=== PATIENT | female | born 1995 | race Caucasian/White ===

== ENCOUNTER 2016-07-04 08:44 | Emergency (ER) | payer OTHER ==
--- NOTE | 2016-07-04 10:26 | UC ---
UC General HPI - HPI Summary HPI Summary: complaint of rash started approx 2 months ago wetrn to PCP and recieved treatment for ringworm- using antifungal cream rash started on her both legs then spread to arms ,right breast abd stomach rash is not itchy, dry denies fever and URI symptoms denies any new soaps detergents foods, medication - History of Current Complaint Chief Complaint: UCRash Stated Complaint: RASH Time Seen by Provider: 07/04/16 10:18 Hx Obtained From: Patient - Allergy/Home Medications Allergies/Adverse Reactions: Allergies Allergy/AdvReac Type Severity Reaction Status Date / Time No Known Allergies Allergy Verified 05/06/15 15:37 PMH/Surg Hx/FS Hx/Imm Hx Previously Healthy: Yes - Surgical History Surgical History: Yes Surgery Procedure, Year, and Place: Jaw Surgery 2013 in [place], t+a - Family History Known Family History: Positive: Hypertension, Diabetes Negative: Cardiac Disease - Social History Occupation: Student Lives: With Family Alcohol Use: None Substance Use Type: None Smoking Status (MU): Never Smoked Tobacco Review of Systems Constitutional: Negative Skin: Rash Eyes: Negative ENT: Negative Respiratory: Negative Cardiovascular: Negative Gastrointestinal: Negative Genitourinary: Negative Motor: Negative Neurovascular: Negative Musculoskeletal: Negative Neurological: Negative Psychological: Negative All Other Systems Reviewed And Are Negative: Yes Physical Exam Triage Information Reviewed: Yes Appearance: No Pain Distress, Well-Nourished, Obese Vital Signs: Initial Vital Signs Temp 98.2 F 07/04/16 09:21 Pulse 91 07/04/16 09:21 Resp 16 07/04/16 09:21 BP 133/78 07/04/16 09:21 Pulse Ox 100 07/04/16 09:21 Vital Signs Reviewed: Yes Eyes: Positive: Conjunctiva Clear ENT: Positive: Pharynx normal, Nasal drainage Neck: Positive: No Lymphadenopathy Respiratory: Positive: Lungs clear, Normal breath sounds, No respiratory distress Cardiovascular: Positive: RRR, No Murmur, Pulses Normal Abdomen Description: Positive: Nontender, Soft Bowel Sounds: Positive: Present Musculoskeletal Exam: Normal Neurological Exam: Normal Psychological Exam: Normal Skin: Positive: Other - areas or erythematous circular patches with raised edge and clear centers- 2 left, 1 right breast, 2 on torso Course/Dx - Differential Dx - Multi-Symptom Differential Diagnoses: Other - tinea, impetigo Provider Diagnoses: tinea corporis Discharge - Discharge Plan Condition: Stable Disposition: HOME Prescriptions: Clotrimazole W/ Betamethasone [Clotrimazole/Betamethason 1-0.05 %] 1 lot EX BID #1 tube Patient Education Materials: Tinea Corporis (ED) Referrals: No Primary Care Phys,NOPCP [Primary Care Provider] - [facility] [Outside] Additional Instructions: Please cream as directed Increase fluids and rest Take acetaminophen or ibuprofen for fever or pain Please review your discharge instructions. If your symptoms do not improve please call your primary care provider or return to urgent Your blood pressure is pre-hypertensive reading. Please contact your primary care provider within 1 day -4 weeks for further evaluation.
[2016-07-04 10:54] VITALS: BP 128/70
== END 2016-07-04 10:53 | disposition home or self-care (01) ==
LOC: UCEAST 08:44
DX: B35.4 Tinea corporis (principal); E66.9 Obesity, unspecified
CPT/HCPCS: 99212; G0463

== ENCOUNTER 2016-11-12 08:54 | Emergency (ER) | payer OTHER ==
[2016-11-12 09:01] VITALS: BP 143/73
--- NOTE | 2016-11-12 09:08 | UC ---
Skin Complaint HPI - HPI Summary HPI Summary: 21 JYACE OLD FEMALE PRESENTS WITH COMPLAINS OF LEFT ANTERIOR VALDEZ FUNGAL INFECTION PRESENTS FOR A REFILL ON HER LOTRISONE. - History of Current Complaint Chief Complaint: UCMedRefill Time Seen by Provider: 11/12/16 09:06 Stated Complaint: MEDICATION REFILL FOR A FUNGAL INFECTION Hx Obtained From: Patient Hx Last Menstrual Period: 11/11/16 Onset/Duration: Sudden Onset Skin Exposure Onset/Duration: Days Ago Onset Severity: Moderate Current Severity: Moderate Pain Scale Used: 0-10 Numeric - 6 - Allergy/Home Medications Allergies/Adverse Reactions: Allergies Allergy/AdvReac Type Severity Reaction Status Date / Time No Known Allergies Allergy Verified 05/06/15 15:37 Review of Systems Constitutional: Negative Skin: Rash - LEFT ANTERIOR VALDEZ Eyes: Negative ENT: Negative Respiratory: Negative Cardiovascular: Negative Gastrointestinal: Negative Genitourinary: Negative Motor: Negative Neurovascular: Negative Musculoskeletal: Negative Neurological: Negative Psychological: Negative All Other Systems Reviewed And Are Negative: Yes PMH/Surg Hx/FS Hx/Imm Hx Previously Healthy: Yes - Surgical History Surgical History: Yes Surgery Procedure, Year, and Place: Jaw Surgery 2013 in [place], t+a - Family History Known Family History: Positive: Hypertension, Diabetes Negative: Cardiac Disease - Social History Alcohol Use: None Substance Use Type: None Smoking Status (MU): Never Smoked Tobacco Physical Exam Triage Information Reviewed: Yes Vital Signs: Initial Vital Signs Temp 37.0 C 11/12/16 08:58 Pulse 88 11/12/16 08:58 Resp 18 11/12/16 08:58 BP 143/73 11/12/16 08:58 Pulse Ox 99 11/12/16 08:58 Eye Exam: Normal ENT Exam: Normal Dental Exam: Normal Neck exam: Normal Neck: Positive: 1 Respiratory Exam: Normal Cardiovascular Exam: Normal Abdominal Exam: Normal Musculoskeletal Exam: Normal Neurological Exam: Normal Psychological Exam: Normal Skin: Positive: rashes - LEFT ANTERIOR VALDEZ Course/Dx - Diagnoses Provider Diagnoses: FUNGAL INFECTION LEFT ANTERIOR VALDEZ Discharge - Discharge Plan Condition: Stable Disposition: HOME Prescriptions: Betamethasone Shira 0.1% CRM(NF) [Valisone 0.1% CM(NF)] 1 applic TOPICAL BID #90 gm Clotrimazole 1% CREAM* [Clotrimazole 1%*] 1 applic TOPICAL BID #90 gm Patient Education Materials: Skin Yeast Infection (ED) Referrals: Lissett Castro [Medical Doctor] - No Primary Care Phys,NOPCP [Primary Care Provider] -
== END 2016-11-12 09:26 | disposition home or self-care (01) ==
LOC: UCEAST 08:54
DX: B36.8 Other specified superficial mycoses (principal)
CPT/HCPCS: 99212; G0463

== ENCOUNTER 2017-02-05 12:55 | Emergency (ER) | payer OTHER ==
[2017-02-05 13:15] VITALS: BP 120/72
--- NOTE | 2017-02-05 15:00 | UC ---
Skin Complaint HPI - HPI Summary HPI Summary: This is an otherwise healthy 21 yo female who presents with c/o rash. This is the 3rd time this year she has been seen with this complaint. She was diagnosed with tinea in June and prescribed clotriamzole/betamethasone cream which was effective. She was seen again in October with a recurrence and given a refill. She said she has continued to use the cream twice daily for the last 3 months and the rash was nearly gone until last week when it flared again. She denies associated pruritis or flaking of the skin. - History of Current Complaint Chief Complaint: UCSkin Stated Complaint: INFECTED LEGS Hx Last Menstrual Period: 02/01/17 - Allergy/Home Medications Allergies/Adverse Reactions: Allergies Allergy/AdvReac Type Severity Reaction Status Date / Time No Known Allergies Allergy Verified 02/05/17 13:15 Review of Systems Constitutional: Negative Skin: Rash Eyes: Negative ENT: Negative Respiratory: Negative Cardiovascular: Negative Gastrointestinal: Negative Genitourinary: Negative Motor: Negative Neurovascular: Negative Musculoskeletal: Negative Neurological: Negative Psychological: Negative Is Patient Immunocompromised?: No All Other Systems Reviewed And Are Negative: Yes PMH/Surg Hx/FS Hx/Imm Hx Previously Healthy: Yes - Surgical History Surgical History: Yes Surgery Procedure, Year, and Place: Jaw Surgery 2013 in [place], t+a - Family History Known Family History: Positive: Hypertension, Diabetes Negative: Cardiac Disease - Social History Alcohol Use: None Substance Use Type: None Smoking Status (MU): Never Smoked Tobacco Physical Exam Triage Information Reviewed: Yes Appearance: Well-Appearing Vital Signs: Initial Vital Signs Temp 98.2 F 02/05/17 13:09 Pulse 68 02/05/17 13:09 Resp 20 02/05/17 13:09 BP 120/72 02/05/17 13:09 Pulse Ox 100 02/05/17 13:09 Vital Signs Reviewed: Yes ENT Exam: Normal Dental Exam: Normal Neck exam: Normal Respiratory: Positive: Chest non-tender, Lungs clear Cardiovascular Exam: Normal Cardiovascular: Positive: RRR, No Murmur Abdominal Exam: Normal Abdomen Description: Positive: Nontender Musculoskeletal Exam: Normal Musculoskeletal: Positive: Strength Intact Neurological Exam: Normal Psychological Exam: Normal Skin: Positive: Other - patches of erythematous/hyperpigmented papules over her legs and lower abdomen. None raised, no flaking or excoriation Course/Dx - Course Course Of Treatment: This is an otherwise healthy 21 yo female who presents with recurrent skin rash. Recommend trialing ketoconazole shampoo applied to the entire body for suspected tinea versicolor. Recommend she be seen by a tire beader maker. Her mother is going to work on setting her up for an appointment. - Differential Diagnoses - Skin Complaint Differential Diagnoses: Cellulitis, Drug Rash, Impetigo, Tinea - Diagnoses Provider Diagnoses: 1. Tinea versicolor Discharge - Discharge Plan Condition: Stable Disposition: HOME Prescriptions: Ketoconazole (Topical) [Ketoconazole] 2 % EX DAILY #1 bottle Patient Education Materials: Tinea Versicolor (ED) Referrals: No Primary Care Phys,NOPCP [Primary Care Provider] - Additional Instructions: Instructions: 1. Apply the shampoo to your entire body, wait 5 minutes before rinsing. Do this once daily for 7 days 2. Please see a tire beader maker when you finish classes this semester
== END 2017-02-05 14:57 | disposition home or self-care (01) ==
LOC: UCEAST 12:55
DX: B36.0 Pityriasis versicolor (principal)
CPT/HCPCS: 99212; G0463

== ENCOUNTER 2017-08-12 09:30 | Emergency (ER) | payer OTHER ==
[2017-08-12 09:42] VITALS: BP 129/85
--- NOTE | 2017-08-12 10:22 | UC ---
Elaina Stein Emily, scribed for Sigifredo Nicole MD on 08/12/17 at 1005 . Complaint Female HPI - HPI Summary HPI Summary: In room: This patient is a 21 year old F presenting to convenient care with a chief complaint of internal vaginal itching that began yesterday. The patient rates the pain 0/10 in severity. Symptoms aggravated by nothing. Symptoms alleviated by nothing. Patient reports vaginal discharge (white). Patient denies abd pain, nausea, vomiting, and diarrhea. Pt reports having a vaginal yeast infection 1 year ago. MD: Vital signs stable. Temperature 99.4. Blood pressure 129/85. Visit history noncontributory to present complaint. Nurses: Pt complains of vaginal itching that began 08/11/17. Pt states itching has gotten worse. - History Of Current Complaint Chief Complaint: UCGU Stated Complaint: PERSONAL Time Seen by Provider: 08/12/17 09:45 Hx Obtained From: Patient Hx Last Menstrual Period: 07/16/17 ?: No Onset/Duration: Sudden Onset, Lasting Days, Still Present Timing: Constant Severity Initially: Mild Severity Currently: Mild Pain Intensity: 0 Pain Scale Used: 0-10 Numeric Aggravating Factor(s): Nothing Alleviating Factor(s): Nothing Associated Signs And Symptoms: Positive: Vaginal Discharge - Allergies/Home Medications Allergies/Adverse Reactions: Allergies Allergy/AdvReac Type Severity Reaction Status Date / Time No Known Allergies Allergy Verified 08/12/17 09:38 PMH/Surg Hx/FS Hx/Imm Hx Previously Healthy: Yes Endocrine History: Other Other Endocrine History: Negative diabetes Cardiovascular History: Other Other Cardiovascular History: Negative HTN - Surgical History Surgical History: Yes Surgery Procedure, Year, and Place: Jaw Surgery 2013 in [place], t+a - Family History Known Family History: Positive: Hypertension, Diabetes, Other - [place] Negative: Cardiac Disease - Social History Occupation: Student Lives: With Family Alcohol Use: None Substance Use Type: None Smoking Status (MU): Never Smoked Tobacco Review of Systems Gastrointestinal: Other - Negative abd pain, nausea, vomiting, and diarrhea Genitourinary: Vaginal/Penile Itching, Vaginal/Penile Discharge All Other Systems Reviewed And Are Negative: Yes Physical Exam - Summary Physical Exam Summary: Appearance: The patient is well-appearing, is in no pain distress, and is well- nourished. Eyes: Conjunctiva are clear. ENT: The hearing is grossly normal, the pharynx is normal, and the TMs are normal. There is no muffled or hoarse voice. Neck: The neck is supple and there is no lymphadenopathy. Respiratory: The chest is nontender. The lungs are clear, there are normal breath sounds, and there is no respiratory distress. Cardiovascular: Heart is regular rate and rhythm. There is no murmur. Abdomen: The abdomen is soft and nontender. There is no organomegaly. Pelvic Exam: FEMALE RN PRESENT. EGB WAS NORMAL. VAGINAL VAULT HAS A MODERATE AMOUNT OF WHITE, CURD-LIKE SUBSTANCE. NO OBVIOUS ODOR. YEAST TRICHOMONAS AND GC WERE TESTED. BIMANUAL EXAMINATION SHOWS THE SLIGHTEST TENDERNESS WITHOUT MASSES. Bowel sounds: present Musculoskeletal: Strength is intact. The patient moves all extremities. Neurological: The patient is alert. Psychological: The patient displays age appropriate behavior Skin: Negative for rashes. Triage Information Reviewed: Yes Vital Signs: Initial Vital Signs Temp 99.4 F 08/12/17 09:39 Pulse 67 08/12/17 09:39 Resp 16 08/12/17 09:39 BP 129/85 08/12/17 09:39 Pulse Ox 100 08/12/17 09:39 Vital Signs Reviewed: Yes Complaint Female Dx - Course Course Of Treatment: Pt with a history of vaginal yeast infections. Comes to the [facility] with similar complaints. She is sexually active. Examination is consistent with vulvovaginal candidiasis. As the explanation of pruritus. We will also follow up to test for trich NGC. I will treat her with oral fluconazole 150 milligrams, to have the dose repeated in 3 days if no resolution. Patient is Urgent/Emergent. BP elevated due to current condition w/ o HTN in past medical history. Medications have been included in the original chart and reviewed. - Differential Dx/Diagnosis Provider Diagnoses: Vulvovaginal candidiasis. Discharge - Sign-Out/Discharge Documenting (check all that apply): Discharge/Admit/Transfer - Discharge Plan Condition: Stable Disposition: HOME Prescriptions: Fluconazole [Fluconazole 150 mg tab] 150 mg PO ONCE #2 tablet Patient Education Materials: Yeast Infection (ED) Referrals: No Primary Care Phys,NOPCP [Primary Care Provider] - Additional Instructions: SEEK TREATMENT AT THE EMERGENCY DEPARTMENT IF SYMPTOMS WORSEN OR IF NEW SYMPTOMS DEVELOP. FOLLOW UP WITH PRIMARY CARE PHYSICIAN. Establish with a new primary care provider and follow-up within 4 weeks for blood pressure readings and further evaluation. ~If you cant find a provider, try to check your blood pressure on your own and see if its above 120/80. If so , follow up for further evaluation and treatment. WE DISCUSSED: 1. I have given you a pill to deal with this condition. You can repeat this pill in 3 days if you are not better. You could also buy over the counter medication to treat this condition. 2. If you have any other abnormal texts, we will call you, as needed. 3. Call us for any questions or concerns. - Billing Disposition and Condition Condition: STABLE Disposition: HOME The documentation as recorded by the Elaina wilson Emily accurately reflects the service I personally performed and the decisions made by me, Sigifredo Nicole MD.
--- NOTE | 2017-08-13 16:38 | UC ---
- Progress Note Progress Note: PLEASE CALL PATIENT. VAGINAL SWAB POSITIVE NOT ONLY FOR YEAST BUT ALSO FOR BV. TAKE THE DIFLUCAN ORIGINALLY PRESCRIBED. ERX FOR FLAGYL SENT TO [facility]. TAKE TWICE DAILY FOR THE FULL 7 DAYS. NO ALCOHOL WHILE ON THIS MEDICATION. FOLLOW-UP PCP NEEDED. - LYLE AKINS M.D. Discharge - Sign-Out/Discharge Documenting (check all that apply): Post-Discharge Follow Up - Discharge Plan Condition: Stable Disposition: HOME Prescriptions: Fluconazole [Fluconazole 150 mg tab] 150 mg PO ONCE #2 tablet metroNIDAZOLE [Flagyl 500 MG TAB] 500 mg PO BID #14 tab Patient Education Materials: Yeast Infection (ED) Referrals: No Primary Care Phys,NOPCP [Primary Care Provider] - Additional Instructions: SEEK TREATMENT AT THE EMERGENCY DEPARTMENT IF SYMPTOMS WORSEN OR IF NEW SYMPTOMS DEVELOP. FOLLOW UP WITH PRIMARY CARE PHYSICIAN. Establish with a new primary care provider and follow-up within 4 weeks for blood pressure readings and further evaluation. ~If you cant find a provider, try to check your blood pressure on your own and see if its above 120/80. If so , follow up for further evaluation and treatment. WE DISCUSSED: 1. I have given you a pill to deal with this condition. You can repeat this pill in 3 days if you are not better. You could also buy over the counter medication to treat this condition. 2. If you have any other abnormal texts, we will call you, as needed. 3. Call us for any questions or concerns. - Billing Disposition and Condition Condition: STABLE Disposition: HOME
== END 2017-08-12 10:30 | disposition home or self-care (01) ==
LOC: UCEAST 09:30
DX: B37.3 Candidiasis of vulva and vagina (principal); R03.0 Elevated blood-pressure reading, without diagnosis of hypertension; N76.0 Acute vaginitis; B96.89 Other specified bacterial agents as the cause of diseases classified elsewhere
CPT/HCPCS: 87480; 87491; 87510; 87591; 87661; 99212; G0463

== ENCOUNTER 2017-08-26 10:33 | Emergency (ER) | payer OTHER ==
[2017-08-26 10:39] VITALS: BP 137/74
--- NOTE | 2017-08-26 11:10 | UC ---
Complaint Female HPI - HPI Summary HPI Summary: Patiently recent treatment treated for BV and vaginal yeast. Patient states she has been external itching. No vaginal discharge, no urinary symptoms, no fevers, chills, nausea, no night sweats, no pelvic pain - History Of Current Complaint Chief Complaint: UCGU Stated Complaint: PERSONAL Time Seen by Provider: 08/26/17 10:44 Hx Obtained From: Patient Hx Last Menstrual Period: 08/11/17 ?: No Onset/Duration: Gradual Onset, Still Present Timing: Constant Pain Intensity: 0 Character: Burning Aggravating Factor(s): Other - external vulva/vaginal Alleviating Factor(s): Nothing Associated Signs And Symptoms: Positive: Negative - Allergies/Home Medications Allergies/Adverse Reactions: Allergies Allergy/AdvReac Type Severity Reaction Status Date / Time No Known Allergies Allergy Verified 08/26/17 10:40 PMH/Surg Hx/FS Hx/Imm Hx Previously Healthy: Yes - Surgical History Surgical History: Yes Surgery Procedure, Year, and Place: Jaw Surgery 2013 in [place], t+a - Family History Known Family History: Positive: Hypertension, Diabetes, Other - [place] Negative: Cardiac Disease - Social History Occupation: Employed Full-time Lives: With Family Alcohol Use: None Substance Use Type: None Smoking Status (MU): Never Smoked Tobacco Review of Systems Constitutional: Negative Skin: Negative Eyes: Negative ENT: Negative Respiratory: Negative Cardiovascular: Negative Gastrointestinal: Negative Genitourinary: Negative, Other - vulva itching Motor: Negative Neurovascular: Negative Musculoskeletal: Negative Neurological: Negative Psychological: Negative Is Patient Immunocompromised?: No All Other Systems Reviewed And Are Negative: Yes Physical Exam Triage Information Reviewed: Yes Appearance: Well-Appearing, No Pain Distress, Well-Nourished Vital Signs: Initial Vital Signs Temp 96.6 F 08/26/17 10:36 Pulse 84 08/26/17 10:36 Resp 16 08/26/17 10:36 BP 137/74 08/26/17 10:36 Pulse Ox 100 08/26/17 10:36 Vital Signs Reviewed: Yes Eye Exam: Normal Eyes: Positive: Conjunctiva Clear ENT Exam: Normal ENT: Positive: Normal ENT inspection, Hearing grossly normal. Negative: Nasal congestion, Nasal drainage - Sure alcohol right now, Trismus, Muffled voice, Hoarse voice, Dental tenderness Dental Exam: Normal Neck exam: Normal Neck: Positive: Supple, Nontender, No Lymphadenopathy Respiratory Exam: Normal Respiratory: Positive: Chest non-tender, Lungs clear, Normal breath sounds, No respiratory distress, No accessory muscle use Cardiovascular Exam: Normal Cardiovascular: Positive: RRR, No Murmur, Pulses Normal, Brisk Capillary Refill Abdominal Exam: Normal Abdomen Description: Positive: Nontender, No Organomegaly, Soft. Negative: CVA Tenderness (R), CVA Tenderness (L), McBurney's Point Tenderness Bowel Sounds: Positive: Present Pelvic Exam: Positive: External Exam Normal, Discharge - small amount brown ( old blood) discharge Musculoskeletal Exam: Normal Musculoskeletal: Positive: Strength Intact, ROM Intact, No Edema Neurological Exam: Normal Neurological: Positive: Alert, Muscle Tone Normal - Pressure Psychological Exam: Normal Skin Exam: Normal Complaint Female Dx - Course Course Of Treatment: affirm and apptima swab, use monistat externall for itching ---will treat per lab results - Differential Dx/Diagnosis Provider Diagnoses: follow up vaginitis Discharge - Sign-Out/Discharge Documenting (check all that apply): Discharge/Admit/Transfer - Discharge Plan Condition: Stable Disposition: HOME Patient Education Materials: Yeast Infection (ED) Referrals: [facility] [Outside] - If Needed Additional Instructions: Lore, who did agree to brain picker some Monistat cream at the pharmacy. You can use this externally for some of the itching. If you are swabs come back positive for anything we will give you call and call in the appropriate antibiotic. If symptoms get any worse or fail to improve please go to the emergency department for worsening symptoms, to [facility] for follow- up care if symptoms don't improve - Billing Disposition and Condition Condition: STABLE Disposition: Home
--- NOTE | 2017-08-28 07:57 | UC ---
- Progress Note Progress Note: neg GC/CH Trich neg no change 08/28/17 7:56am ljj Discharge - Sign-Out/Discharge Documenting (check all that apply): Post-Discharge Follow Up - Discharge Plan Condition: Stable Disposition: HOME Patient Education Materials: Yeast Infection (ED) Referrals: [facility] [Outside] - If Needed Additional Instructions: Lore, who did agree to pickling tank operator some Monistat cream at the pharmacy. You can use this externally for some of the itching. If you are swabs come back positive for anything we will give you call and call in the appropriate antibiotic. If symptoms get any worse or fail to improve please go to the emergency department for worsening symptoms, to [facility] for follow- up care if symptoms don't improve - Billing Disposition and Condition Condition: STABLE Disposition: Home
== END 2017-08-26 11:15 | disposition home or self-care (01) ==
LOC: UCEAST 10:33
DX: Z51.89 Encounter for other specified aftercare (principal); N89.8 Other specified noninflammatory disorders of vagina
CPT/HCPCS: 81003; 84702; 87086; 87480; 87491; 87510; 87591; 87661; 99212; G0463

== ENCOUNTER 2018-03-10 15:55 | Emergency (ER) | payer OTHER ==
[2018-03-10 16:05] VITALS: BP 138/71
--- NOTE | 2018-03-10 16:11 | UC ---
Abdominal Pain Female HPI - HPI Summary HPI Summary: 22 y/o female with no PMH, no medication other than OCP c/o burning, urgency, mild discomfort with urination, no vaginal discharge, no pain with sex, no odor , hematuria, back pain, fever or chills, no prior UTI. - History of Current Complaint Chief Complaint: UCGU Stated Complaint: PERSONAL Time Seen by Provider: 03/10/18 16:00 Hx Obtained From: Patient Hx Last Menstrual Period: 02/08/18 ?: No Onset/Duration: Sudden Onset, Lasting Days, Worse Since - past 24 hours mild symptoms over weekend Severity Initially: Mild Severity Currently: None Pain Intensity: 0 Pain Scale Used: 0-10 Numeric Location: Suprapubic - mild Allergies/Adverse Reactions: Allergies Allergy/AdvReac Type Severity Reaction Status Date / Time No Known Allergies Allergy Verified 03/10/18 16:04 PMH/Surg Hx/FS Hx/Imm Hx Previously Healthy: Yes - Surgical History Surgical History: Yes Surgery Procedure, Year, and Place: Jaw Surgery 2013 in [facility]a - Family History Known Family History: Positive: Hypertension, Diabetes, Other - [place] Negative: Cardiac Disease - Social History Alcohol Use: Rare Substance Use Type: None Smoking Status (MU): Never Smoked Tobacco Review of Systems All Other Systems Reviewed And Are Negative: Yes Constitutional: Negative: Fever, Chills Skin: Positive: Negative Eyes: Positive: Negative ENT: Positive: Negative Respiratory: Positive: Negative Cardiovascular: Positive: Negative Gastrointestinal: Positive: Negative Genitourinary: Positive: Dysuria, Frequency, Urgency. Negative: Hematuria, Vaginal/Penile Burning, Vaginal/Penile Itching, Vaginal/Penile Discharge, Vaginal/Penile Pain, Vaginal/Penile Tenderness Motor: Positive: Negative Neurovascular: Positive: Negative Musculoskeletal: Positive: Negative Neurological: Positive: Negative Psychological: Positive: Negative Is Patient Immunocompromised?: No Physical Exam Triage Information Reviewed: Yes Appearance: Well-Appearing, No Pain Distress, Well-Nourished Vital Signs: Initial Vital Signs Temp 98.9 F 03/10/18 16:01 Pulse 76 03/10/18 16:01 Resp 14 03/10/18 16:01 BP 138/71 03/10/18 16:01 Pulse Ox 98 03/10/18 16:01 Vital Signs Reviewed: Yes Eyes: Positive: Conjunctiva Clear Abdominal Exam: Normal Abdomen Description: Positive: Nontender, No Organomegaly, Soft, Bruit. Negative: CVA Tenderness (R), CVA Tenderness (L) Musculoskeletal Exam: Normal Neurological Exam: Normal Psychological Exam: Normal Skin Exam: Normal Abd Pain Female Course/Dx - Course Course Of Treatment: UA- + leuks, sent for Cx's. ABx x 3 days given incrase fluid intake - Differential Dx/Diagnosis Differential Diagnosis: Irritable Bowel Syndrome, Pancreatitis, Renal Colic, Urinary Tract Infection Provider Diagnosis: UTI (urinary tract infection) Discharge - Sign-Out/Discharge Documenting (check all that apply): Patient Departure All imaging exams completed and their final reports reviewed: No Studies - Discharge Plan Condition: Good Disposition: HOME Prescriptions: Sulfamethox/Trimethoprim DS* [Bactrim DS 800/160 TAB*] 1 tab PO BID #6 tab Patient Education Materials: Urinary Tract Infection in Women (ED) Referrals: No Primary Care Phys,NOPCP [Primary Care Provider] - Additional Instructions: - Increase fluids - Antibiotics x 3 days - go to ER with back pain, fever, chills, increased pain - back up control while taking antibiotics until done pill pack - Billing Disposition and Condition Condition: GOOD Disposition: Home
--- NOTE | 2018-03-11 15:32 | UC ---
- Progress Note Progress Note: 03/11/2018 Urine culture positive for E.coli. Pt Rx Bactrim PO which cover it Awaiting for for final sensitivity report. No change So Kelley PA-C Course/Dx - Diagnoses Provider Diagnoses: UTI (urinary tract infection) Discharge - Sign-Out/Discharge Documenting (check all that apply): Patient Departure - D/c home All imaging exams completed and their final reports reviewed: No Studies - Discharge Plan Condition: Good Disposition: HOME Prescriptions: Sulfamethox/Trimethoprim DS* [Bactrim DS 800/160 TAB*] 1 tab PO BID #6 tab Patient Education Materials: Urinary Tract Infection in Women (ED) Referrals: No Primary Care Phys,NOPCP [Primary Care Provider] - Additional Instructions: - Increase fluids - Antibiotics x 3 days - go to ER with back pain, fever, chills, increased pain - back up control while taking antibiotics until done pill pack - Billing Disposition and Condition Condition: GOOD Disposition: Home
== END 2018-03-10 16:29 | disposition home or self-care (01) ==
LOC: UCEAST 15:55
DX: N39.0 Urinary tract infection, site not specified (principal); B96.20 Unspecified Escherichia coli [E. coli] as the cause of diseases classified elsewhere
CPT/HCPCS: 81003; 87077; 87086; 87186; 99212; G0463

== ENCOUNTER 2018-03-21 15:56 | Emergency (ER) | payer OTHER ==
[2018-03-21 16:03] VITALS: BP 137/90
--- NOTE | 2018-03-21 16:40 | ED ---
GI/ HPI - HPI Summary HPI Summary: 22 yrold female with the complaint of mild dysuria, and discomfort, itching with urination. She had a UTI diagnosed on 03/10, was given a three day script for bactrim DS which the organism was sensitive to. The patient reports that prior to the Bactrim she has pressure, urgency, hesitancy and dysuria. With the bactrim she got mostly better but has not completely felt returned to normal. She still has some discomfort with urination. Denies fever, chills. No back pain or abdominal pain. She is presently on her menses that started yesterday. - History of Current Complaint Chief Complaint: UCGU Time Seen by Provider: 03/21/18 16:13 Stated Complaint: UTI Hx Last Menstrual Period: 02/08/18 Pain Intensity: 3 - Allergy/Home Medications Allergies/Adverse Reactions: Allergies Allergy/AdvReac Type Severity Reaction Status Date / Time No Known Allergies Allergy Verified 03/21/18 16:03 PMH/Surg Hx/FS Hx/Imm Hx Endocrine/Hematology History: Denies: Hx Diabetes, Hx Thyroid Disease Cardiovascular History: Denies: Hx Hypertension Respiratory History: Denies: Hx Asthma, Hx Chronic Obstructive Pulmonary Disease (COPD) GI History: Denies: Hx Ulcer - Surgical History Surgery Procedure, Year, and Place: Jaw Surgery 2013 in [place], t+a Infectious Disease History: No Infectious Disease History: Denies: Hx Clostridium Difficile, Hx Hepatitis, Hx Human Immunodeficiency Virus (HIV), Hx of Known/Suspected MRSA, Hx Shingles, Hx Tuberculosis, Hx Known/ Suspected VRE, Hx Known/Suspected VRSA, History Other Infectious Disease, Traveled Outside the in Last 30 Days - Family History Known Family History: Positive: Hypertension, Diabetes, Other - CA Negative: Cardiac Disease - Social History Occupation: Employed Full-time Alcohol Use: Rare Substance Use Type: Reports: None Smoking Status (MU): Never Smoked Tobacco Review of Systems Constitutional: Negative Positive: dysuria. Negative: see HPI, burning, discharge, frequency, flank pain , incontinence, urgency All Other Systems Reviewed And Are Negative: Yes Physical Exam Triage Information Reviewed: Yes Vital Signs On Initial Exam: Initial Vitals Temp Pulse Resp BP Pulse Ox 98.7 F 71 18 137/90 99 03/21/18 16:00 03/21/18 16:00 03/21/18 16:00 03/21/18 16:00 03/21/18 16:00 Vital Signs Reviewed: Yes Appearance: Positive: Well-Appearing, No Pain Distress Skin: Positive: Warm Head/Face: Positive: Normal Head/Face Inspection Eyes: Positive: EOMI ENT: Positive: Normal ENT inspection Neck: Positive: Nontender Respiratory/Lung Sounds: Positive: Clear to Auscultation, Breath Sounds Present Cardiovascular: Positive: RRR. Negative: Murmur Abdomen Description: Positive: Nontender Musculoskeletal: Positive: Strength/ROM Intact Neurological: Positive: Alert, Oriented to Person Place, Time, CN Intact II-III , Normal Gait Psychiatric: Positive: Normal - [place] Coma Scale Best Eye Response: 4 - Spontaneous Best Motor Response: 6 - Obeys Commands Best Verbal Response: 5 - Oriented Coma Scale Total: 15 Diagnostics - Vital Signs Vital Signs Temp Pulse Resp BP Pulse Ox 03/21/18 16:00 98.7 F 71 18 137/90 99 - Laboratory Lab Results: Lab Results 03/21/18 Range/Units 16:21 POC Urine Color Yellow POC Urine Clarity Clear POC Urine pH 6.0 (5-9) POC Ur Specif Mercedes 1.020 (1.010-1.030) POC Urine Protein Negative (Negative) POC Ur Glucose (UA) Negative (Negative) POC Urine Ketones Negative (Negative) POC Urine Blood 2+ A (Negative) POC Urine Nitrite Negative (Negative) POC Urine Bilirubin Negative (Negative) POC Urine Urobilinogen 0.2 (Negative) POC U Leukocyte Esteras Negative (Negative) Lab Statement: Any lab studies that have been ordered have been reviewed, and results considered in the medical decision making process. GIGU Course/Dx - Course Course Of Treatment: 22 yr old with positive urine culture and with urinary symptoms. She is likely under treated. Giving a course of keflex for five days. Referral to primary care and [employer] for follow up for routine maintenance and BP check. - Diagnoses Provider Diagnoses: Hypertension, UTI (urinary tract infection) Discharge - Sign-Out/Discharge Documenting (check all that apply): Patient Departure All imaging exams completed and their final reports reviewed: No Studies - Discharge Plan Condition: Good Disposition: HOME Prescriptions: Cephalexin CAP* [Keflex CAP*] 500 mg PO TID #15 cap Patient Education Materials: Urinary Tract Infection in Women (DC), Hypertension (ED) Referrals: [facility] [place] [facility] [Outside] Zenia Be MD [Medical Doctor] - 3 Days No Primary Care Phys,NOPCP [Primary Care Provider] - - Billing Disposition and Condition Condition: GOOD Disposition: Home
== END 2018-03-21 16:46 | disposition home or self-care (01) ==
LOC: UCEAST 15:56
DX: N39.0 Urinary tract infection, site not specified (principal); I10 Essential (primary) hypertension
CPT/HCPCS: 81003; 99212; G0463

== ENCOUNTER 2018-06-13 11:51 | Emergency (ER) | payer SELFPAY ==
[2018-06-13 12:08] VITALS: BP 142/82
--- NOTE | 2018-06-13 12:31 | UC ---
Complaint Female HPI - HPI Summary HPI Summary: vaginal discharge x 1 day itchy , painful, white thick discharge use monostat last night without any improvement worse today , no hx of STDs , + for new sexual partner - History Of Current Complaint Chief Complaint: UCGU Stated Complaint: PERSONAL Time Seen by Provider: 06/13/18 12:03 Hx Obtained From: Patient Hx Last Menstrual Period: 05/24/18 Onset/Duration: Gradual Onset, Lasting Days - 1, Still Present Timing: Constant Severity Initially: Moderate Severity Currently: Severe Pain Intensity: 8 Character: Burning Aggravating Factor(s): Nothing Alleviating Factor(s): Nothing Associated Signs And Symptoms: Positive: Vaginal Discharge, Genital Swelling. Negative: Fever, Back Pain, Vaginal Bleeding/Discharge, Nausea, Vomiting(# Of Episodes =), Genital Blisters, Retained Foregin Body (Specify) - Allergies/Home Medications Allergies/Adverse Reactions: Allergies Allergy/AdvReac Type Severity Reaction Status Date / Time No Known Allergies Allergy Verified 06/13/18 12:08 PMH/Surg Hx/FS Hx/Imm Hx Previously Healthy: Yes - Surgical History Surgical History: Yes Surgery Procedure, Year, and Place: Jaw Surgery 2013 in [place], t+a - Family History Known Family History: Positive: Hypertension, Diabetes, Other - [place] Negative: Cardiac Disease - Social History Alcohol Use: None Substance Use Type: None Smoking Status (MU): Never Smoked Tobacco Review of Systems All Other Systems Reviewed And Are Negative: Yes Constitutional: Positive: Negative Skin: Positive: Negative Eyes: Positive: Negative ENT: Positive: Negative Respiratory: Positive: Negative Gastrointestinal: Positive: Negative Genitourinary: Positive: Vaginal/Penile Burning, Vaginal/Penile Itching, Vaginal /Penile Discharge, Vaginal/Penile Pain, Vaginal/Penile Tenderness Is Patient Immunocompromised?: No Physical Exam Triage Information Reviewed: Yes Appearance: Well-Appearing, No Pain Distress, Well-Nourished Vital Signs: Initial Vital Signs Temp 98.1 F 06/13/18 12:03 Pulse 87 06/13/18 12:03 Resp 14 06/13/18 12:03 BP 142/82 06/13/18 12:03 Pulse Ox 100 06/13/18 12:03 Vital Signs Reviewed: Yes Eye Exam: Normal Eyes: Positive: Conjunctiva Clear ENT: Positive: Normal ENT inspection, Hearing grossly normal, Pharynx normal Neck: Positive: Supple, Nontender Respiratory: Positive: Chest non-tender, Lungs clear, Normal breath sounds Cardiovascular: Positive: RRR, No Murmur, Pulses Normal Abdominal Exam: Normal Abdomen Description: Positive: Nontender, Soft. Negative: CVA Tenderness (R), CVA Tenderness (L), Distended, Guarding Bowel Sounds: Positive: Present Pelvic Exam: Positive: External Exam Normal, No Cerv. Motion Tender, No Masses, Discharge - thick white. Negative: Active Bleeding, Blood, Cervicitis, Tender Adnexa, Ulcers Skin Exam: Normal Complaint Female Dx - Differential Dx/Diagnosis Provider Diagnosis: Vaginitis Discharge - Sign-Out/Discharge Documenting (check all that apply): Patient Departure All imaging exams completed and their final reports reviewed: No Studies - Discharge Plan Condition: Stable Disposition: HOME Prescriptions: Fluconazole 150 MG TAB* [Diflucan 150 MG TAB*] 150 mg PO ONCE #2 tablet Patient Education Materials: Vaginitis (ED) Referrals: No Primary Care Phys,NOPCP [Primary Care Provider] - 7 Days Additional Instructions: will start treatment for yeast infection will check for GC/ Chlamydia / BV / Trich call the office in 2 days for the culture results will send treatment as needed - Billing Disposition and Condition Condition: STABLE Disposition: Home
== END 2018-06-13 12:35 | disposition home or self-care (01) ==
LOC: UCEAST 11:51
DX: N76.0 Acute vaginitis (principal)
CPT/HCPCS: 87480; 87491; 87510; 87591; 87660; 87661; 99212; G0463

== ENCOUNTER 2018-07-05 10:38 | Emergency (ER) | payer SELFPAY ==
[2018-07-05 10:50] VITALS: BP 124/81
--- NOTE | 2018-07-05 11:09 | UC ---
Complaint Female HPI - HPI Summary HPI Summary: 22-year-old female presents with complaints of persistent vaginal itching and discharge. She was initially seen here on 06/13/2018 for same symptoms. Her exam was consistent with a vaginal yeast infection and she was treated with Diflucan x 2 doses. Testing for gonorrhea, Chlamydia, and Trichomonas were all negative at that time. Patient returned on 06/25/2018 reporting persistent symptoms. States the itching and discharge did improve for a couple of days however returned shortly after taking her second dose of Diflucan. Her exam was again consistent with a vaginal yeast infection so she was prescribed Diflucan 3 more doses. She had a negative UA, negative , and the affirm swab was also negative for her Gardnerella and Antonella. Patient states that this time the vaginal discharge has decreased she continues to have significant vaginal itching. States she has not been sexually active in the past 3 weeks. Last menstrual period was 06/30/2018 and lasted a total of 4 days with a normal flow. Denies fever, chills, abdominal pain, back or flank pain, nausea, vomiting, diarrhea, dysuria, frequency, urgency, or hematuria. - History Of Current Complaint Chief Complaint: UCGU Stated Complaint: PERSONAL Time Seen by Provider: 07/05/18 11:00 Hx Obtained From: Patient Hx Last Menstrual Period: 06/30/18 Pain Intensity: 2 - Allergies/Home Medications Allergies/Adverse Reactions: Allergies Allergy/AdvReac Type Severity Reaction Status Date / Time No Known Allergies Allergy Verified 07/05/18 10:51 PMH/Surg Hx/FS Hx/Imm Hx Previously Healthy: Yes - Denies significant PMH - Surgical History Surgical History: Yes Surgery Procedure, Year, and Place: Jaw Surgery 2013 in [place], t+a - Family History Known Family History: Positive: Hypertension, Diabetes, Other - [place] Negative: Cardiac Disease - Social History Occupation: Student Lives: Dormitory/Roommates Alcohol Use: None Substance Use Type: None Smoking Status (MU): Never Smoked Tobacco Review of Systems All Other Systems Reviewed And Are Negative: Yes Constitutional: Negative: Fever, Chills Skin: Negative: Rash Respiratory: Positive: Negative Cardiovascular: Positive: Negative Gastrointestinal: Negative: Abdominal Pain, Vomiting, Diarrhea, Nausea Genitourinary: Positive: Vaginal/Penile Itching, Vaginal/Penile Discharge. Negative: Dysuria, Hematuria, Frequency, Urgency, Abnormal Bleeding Musculoskeletal: Positive: Negative Neurological: Positive: Negative Is Patient Immunocompromised?: No Physical Exam Triage Information Reviewed: Yes Appearance: Well-Appearing, No Pain Distress, Well-Nourished Vital Signs: Initial Vital Signs Temp 98 F 07/05/18 10:45 Pulse 77 07/05/18 10:45 Resp 17 07/05/18 10:45 BP 124/81 07/05/18 10:45 Pulse Ox 100 07/05/18 10:45 Vital Signs Reviewed: Yes Respiratory: Positive: Lungs clear, Normal breath sounds, No respiratory distress, No accessory muscle use Cardiovascular: Positive: RRR, No Murmur, Pulses Normal, Brisk Capillary Refill Abdomen Description: Positive: Nontender, No Organomegaly, Soft. Negative: CVA Tenderness (R), CVA Tenderness (L), Distended, Guarding Bowel Sounds: Positive: Present Musculoskeletal Exam: Normal Neurological Exam: Normal Skin Exam: Normal Complaint Female Dx - Course Course Of Treatment: 22-year-old female presents with complaints of persistent vaginal itching and discharge. She was initially seen here on 06/13/2018 for same symptoms. Her exam was consistent with a vaginal yeast infection and she was treated with Diflucan x 2 doses. Testing for gonorrhea, Chlamydia, and Trichomonas were all negative at that time. Patient returned on 06/25/2018 reporting persistent symptoms. States the itching and discharge did improve for a couple of days however returned shortly after taking her second dose of Diflucan. Her exam was again consistent with a vaginal yeast infection so she was prescribed Diflucan 3 more doses. She had a negative UA, negative , and the affirm swab was also negative for her Gardnerella and Antonella. Patient states that this time the vaginal discharge has decreased she continues to have significant vaginal itching. States she has not been sexually active in the past 3 weeks. Last menstrual period was 06/30/2018 and lasted a total of 4 days with a normal flow. Denies fever, chills, abdominal pain, back or flank pain, nausea, vomiting, diarrhea, dysuria, frequency, urgency, or hematuria. Afebrile. Vital signs stable. Her exam was unremarkable. [id number] urinalysis showed 1+ blood but was otherwise normal. I suspect that the blood was from her recent menses. Considering that she had no significant findings on the 2 previous pelvic exams this was deferred at this time and considering the recent negative testing I discussed with the patient that I did not feel that further testing or treatment would be beneficial at this time. I'm recommending that she follow up with gynecology. I have provided her with a referral and she is to call for an appointment. Anticipatory guidance and warning symptoms were reviewed with the patient. Verbalizes understanding and agrees with plan of care. - Differential Dx/Diagnosis Differential Diagnosis/HQI/PQRI: Sexually Transmitted Disease, Urinary Tract Infection Provider Diagnosis: Vulvovaginitis Discharge - Sign-Out/Discharge Documenting (check all that apply): Patient Departure All imaging exams completed and their final reports reviewed: No Studies - Discharge Plan Condition: Stable Disposition: HOME Patient Education Materials: Vaginitis (ED) Referrals: No Primary Care Phys,NOPCP [Primary Care Provider] - Zenia Be MD [Medical Doctor] - Additional Instructions: The urine test performed in the clinic today showed no evidence of a urinary tract infection. Considering you recently had negative testing for sexually transmitted infections, the test for a yeast infection was negative, and you have not responded despite treatment for a vaginal yeast infection I am recommending the you be evaluated by gynecology for your symptoms. I do not think additional testing or treatment at this time will provide any benefit. Follow up with Dr. Be, DIRECTOR GOVERNMENT, within 7 days. Call for appointment. Seek immediate medical attention in the emergency room if you develop fever greater than 100.5 F, have severe abdominal pain, abnormal vaginal bleeding, or any worsening of symptoms. - Billing Disposition and Condition Condition: STABLE Disposition: Home
== END 2018-07-05 11:34 | disposition home or self-care (01) ==
LOC: UCEAST 10:38
DX: N76.0 Acute vaginitis (principal)
CPT/HCPCS: 81003; 99211; G0463

== ENCOUNTER 2018-10-25 07:07 | Emergency (ER) | payer OTHER ==
[2018-10-25 07:20] VITALS: BP 130/80
--- NOTE | 2018-10-25 07:36 | UC ---
Skin Complaint HPI - HPI Summary HPI Summary: pruritic foot rash x 1 week some blistering no relief with OTC powder - History of Current Complaint Chief Complaint: UCRash Time Seen by Provider: 10/25/18 07:15 Stated Complaint: RASH Hx Last Menstrual Period: 10/15/18 Onset/Duration: Gradual Onset, Lasting Days Timing: Constant Onset Severity: Mild Current Severity: Mild Pain Intensity: 3 Pain Scale Used: 0-10 Numeric Location: Other - btw toes Character: Pruritus, Redness, Painful Aggravating Factor(s): Touch Alleviating Factor(s): Nothing Associated Signs & Symptoms: Positive: Rash - Allergy/Home Medications Allergies/Adverse Reactions: Allergies Allergy/AdvReac Type Severity Reaction Status Date / Time No Known Allergies Allergy Verified 10/25/18 07:20 Home Medications: Home Medications Miconazole Nitrate [Athlete's Foot] 1 applic TOPICAL DAILY 10/25/18 [History Confirmed 10/25/18] Norethindrone AC-Eth Estradiol [Aurovela 1 mg-20 Mcg Tablet] 1 tab PO DAILY 06/10 [History Confirmed 10/25/18] PMH/Surg Hx/FS Hx/Imm Hx Previously Healthy: Yes - Surgical History Surgical History: Yes Surgery Procedure, Year, and Place: Jaw Surgery 2013 in [place], t+a - Family History Known Family History: Positive: Hypertension, Diabetes, Other - [place] Negative: Cardiac Disease - Social History Alcohol Use: Rare Substance Use Type: None Smoking Status (MU): Never Smoked Tobacco Review of Systems All Other Systems Reviewed And Are Negative: Yes Constitutional: Positive: Negative Skin: Positive: Rash Eyes: Positive: Negative ENT: Positive: Negative Respiratory: Positive: Negative Cardiovascular: Positive: Negative Gastrointestinal: Positive: Negative Genitourinary: Positive: Negative Physical Exam Triage Information Reviewed: Yes Appearance: Well-Appearing, No Pain Distress, Well-Nourished Vital Signs: Initial Vital Signs Temp 97.8 F 10/25/18 07:15 Pulse 90 10/25/18 07:15 Resp 18 10/25/18 07:15 BP 130/80 10/25/18 07:15 Pulse Ox 100 10/25/18 07:15 Vital Signs Reviewed: Yes Eyes: Positive: Conjunctiva Clear ENT: Positive: Hearing grossly normal. Negative: Pharyngeal erythema, Nasal congestion, Nasal drainage, Tonsillar exudate, Trismus, Muffled voice, Hoarse voice, Sinus tenderness Dental: Negative: Abscess @ Neck: Positive: Supple Respiratory: Positive: Lungs clear, Normal breath sounds, No respiratory distress, No accessory muscle use Cardiovascular: Positive: RRR, No Murmur Abdominal Exam: Normal Musculoskeletal: Positive: ROM Intact, No Edema Neurological Exam: Normal Neurological: Positive: Alert Skin Exam: Other - rash c/w tinea pedis on great /2nd and 3rd toed bilat, blisters on 2nd toes bilat, no heel rash Course/Dx - Diagnoses Provider Diagnosis: Tinea pedis Discharge - Sign-Out/Discharge Documenting (check all that apply): Patient Departure All imaging exams completed and their final reports reviewed: No Studies - Discharge Plan Condition: Stable Disposition: HOME Patient Education Materials: Athlete's Foot (ED) Referrals: [facility] [place] [facility] [Outside] - 2 Days Additional Instructions: I suggest you soak you feet twice daily in epsom salts (for 15 minutes) gently dry your feet apply thin film of LOTRIMEN AF you will need to do this for two weeks (maybe three) - Billing Disposition and Condition Condition: STABLE Disposition: Home
== END 2018-10-25 07:52 | disposition home or self-care (01) ==
LOC: UCEAST 07:07
DX: B35.3 Tinea pedis (principal)
CPT/HCPCS: 99211; G0463

== ENCOUNTER 2018-12-15 08:39 | Emergency (ER) | payer OTHER ==
[2018-12-15 08:48] VITALS: BP 126/80
--- NOTE | 2018-12-15 09:32 | UC ---
Throat Pain/Nasal Narinder HPI - HPI Summary HPI Summary: Patient presents to urgent care reporting call hours of nasal congestion postnasal drip and sore throat. Patient denies fevers or chills. No nausea vomiting. No shortness of breath. No fevers chills or rashes. Patient did not take any medication for her symptoms prior to arrival. Patient works in [employer] and is a full-time ongoing student. Patient's medications reviewed this visit. Patient does not smoke. - History of Current Complaint Chief Complaint: UCGeneralIllness Stated Complaint: RESP ISSUE SORE THROAT Time Seen by Provider: 12/15/18 09:21 Hx Obtained From: Patient Hx Last Menstrual Period: 12/08/18 Pain Intensity: 8 - Allergies/Home Medications Allergies/Adverse Reactions: Allergies Allergy/AdvReac Type Severity Reaction Status Date / Time No Known Allergies Allergy Verified 12/15/18 08:48 PMH/Surg Hx/FS Hx/Imm Hx Previously Healthy: Yes - Surgical History Surgical History: Yes Surgery Procedure, Year, and Place: Jaw Surgery 2013 in [facility]a - Family History Known Family History: Positive: Hypertension, Diabetes, Other - CA, Non- Contributory Negative: Cardiac Disease - Social History Occupation: Employed Full-time Lives: With Family Alcohol Use: Rare Substance Use Type: None Smoking Status (MU): Never Smoked Tobacco Review of Systems All Other Systems Reviewed And Are Negative: Yes Constitutional: Positive: Negative Skin: Positive: Negative Eyes: Positive: Negative ENT: Positive: Nasal Discharge, Sinus Congestion, Sinus Pain/Tenderness Respiratory: Positive: Negative Cardiovascular: Positive: Negative Gastrointestinal: Positive: Negative Physical Exam - Summary Physical Exam Summary: Vital Signs Reviewed: Yes A+Ox3, no distress Eyes: Conjunctiva Clear, ABRAM. EOM intact and full ENT: Hearing grossly normal TM x 2 clear, tubrinates inflammed and boggy, + PND , mmoist, uvula midline, no exudate, no erythema Neck: Positive: Supple Respiratory: Positive: No respiratory distress, No accessory muscle use + CTA throughout no w/r Cardiovascular: RRR nl s1, s2 no m/r CBT <2 sec abd soft + BS nt/nd no guarding, no distension Musculoskeletal Exam: LUGO x 4 without difficulty Strength Intact, ROM Intact Neurological: Positive: Alert, + sensation throughout Psychological: Positive: Normal Response To examiner Skin: Positive: no rash, no ecchymosis Triage Information Reviewed: Yes Vital Signs: Initial Vital Signs Temp 98.5 F 12/15/18 08:45 Pulse 88 12/15/18 08:45 Resp 18 12/15/18 08:45 BP 126/80 12/15/18 08:45 Pulse Ox 99 12/15/18 08:45 Throat Pain/Nasal Course/Dx - Course Course Of Treatment: Patient presents to urgent care for evaluation of sinus congestion starting last night. Patient isn't taking any [id number] medications. No fevers or chills or difficulty breathing. On exam vital signs are stable. On exam patient with some mild sinus congestion postnasal drip. No fluid her ears. Rapid strep is negative. Will give prescription for Flonase. Recommend Claritin decongestant. Secretion precaution. Work for note. Patient comfortable agreement with plan. - Differential Dx/Diagnosis Provider Diagnosis: Upper respiratory infection Discharge ED - Sign-Out/Discharge Documenting (check all that apply): Patient Departure All imaging exams completed and their final reports reviewed: No Studies - Discharge Plan Condition: Stable Disposition: HOME Prescriptions: Fluticasone NASAL SPRAY 50MCG* [Flonase NASAL SPRAY 50MCG*] 2 spray BOTH NARES DAILY #1 btl Patient Education Materials: Upper Respiratory Infection (ED) Forms: *Work Release Referrals: No Primary Care Phys,NOPCP [Primary Care Provider] - [facility] [Outside] Additional Instructions: - Stay well hydrated. Drink plenty of non-alcoholic, non-caffinated beverages. - Alternate ibuprofen (Advil, Motrin) 600mg and Tylenol every 3 hours for pain or fever. Take with food. Do NOT take for more than 4-5 days. - These infections are spread by secretions - do NOT share eating or drinking utensils - clean items you share with other people such as cell phones, computer mouse, TV remote, computer tablets,etc. Once you start to feel better, change your toothbrush and your pillowcase. - get plenty of restful sleep - humidify the air in the room where you sleep - boil water, run a hot steam shower, vaporizer, cups of water by heat register - okay to take over the counter decongestant and cough medication (Claritin-D, Shakila-D, Zyrtec-D) - use nasal spray as prescribed - contact your doctor or return with questions or concerns - Billing Disposition and Condition Condition: STABLE Disposition: Home
== END 2018-12-15 09:42 | disposition home or self-care (01) ==
LOC: UCEAST 08:39
DX: J06.9 Acute upper respiratory infection, unspecified (principal)
CPT/HCPCS: 87651; 99212; G0463

== ENCOUNTER 2018-12-31 08:04 | Emergency (ER) | payer OTHER ==
[2018-12-31 08:15] VITALS: BP 134/92
--- NOTE | 2018-12-31 08:29 | UC ---
Throat Pain/Nasal Narinder HPI - HPI Summary HPI Summary: 23 yo with 3 days of sore throat, congestion and ear pain. Temp to 99.8 last night. Has some bloody nasal discharge, no headache. Using Claritin D. - History of Current Complaint Chief Complaint: UCRespiratory Stated Complaint: SORE THROAT EAR PAIN RESP ISSUE Time Seen by Provider: 12/31/18 08:19 Hx Obtained From: Patient Hx Last Menstrual Period: 2 weeks ago Onset/Duration: Gradual Onset, Lasting Days - 3 Severity: Moderate Pain Intensity: 7 Cough: None Associated Signs & Symptoms: Positive: Dysphagia, Sinus Discomfort, Nasal Discharge - Epiglottits Risk Factors Epiglottis Risk Factors: Negative - Allergies/Home Medications Allergies/Adverse Reactions: Allergies Allergy/AdvReac Type Severity Reaction Status Date / Time No Known Allergies Allergy Verified 12/15/18 08:48 PMH/Surg Hx/FS Hx/Imm Hx Previously Healthy: Yes - Surgical History Surgical History: Yes Surgery Procedure, Year, and Place: Jaw Surgery 2013 in [place], t+a - Family History Known Family History: Positive: Hypertension - mother, Diabetes, Other - CA Negative: Cardiac Disease - Social History Occupation: Employed Full-time Lives: With Family Alcohol Use: Rare Substance Use Type: None Smoking Status (MU): Never Smoked Tobacco Review of Systems All Other Systems Reviewed And Are Negative: Yes Constitutional: Positive: Fever, Fatigue Eyes: Positive: Negative ENT: Positive: Sore Throat, Ear Ache, Sinus Congestion Respiratory: Positive: Negative Cardiovascular: Positive: Negative Gastrointestinal: Positive: Other - decreased appetite Genitourinary: Positive: Negative Motor: Positive: Negative Neurovascular: Positive: Negative Musculoskeletal: Positive: Negative Neurological: Positive: Negative. Negative: Headache Psychological: Positive: Negative Is Patient Immunocompromised?: No Physical Exam Triage Information Reviewed: Yes Appearance: No Pain Distress, Ill-Appearing - congested, looks mildly unwell Vital Signs: Initial Vital Signs Temp 98.6 F 12/31/18 08:11 Pulse 110 12/31/18 08:11 Resp 16 12/31/18 08:11 BP 134/92 12/31/18 08:11 Pulse Ox 100 12/31/18 08:11 Eyes: Positive: Conjunctiva Clear ENT: Positive: Pharyngeal erythema, Nasal congestion, TM dull - left > right serous fluid Dental Exam: Normal Neck: Positive: Supple, Nontender, No Lymphadenopathy Respiratory: Positive: Lungs clear, Normal breath sounds Cardiovascular: Positive: RRR, Tachycardia - --using decongestants. Musculoskeletal Exam: Normal Neurological Exam: Normal Psychological Exam: Normal Skin Exam: Normal Diagnostics - Laboratory Lab Results: rapid strep negative. Throat Pain/Nasal Course/Dx - Course Course Of Treatment: symptomatic treatment of viral illness. - Differential Dx/Diagnosis Differential Diagnosis/HQI/PQRI: Otitis Media, Pharyngitis, Sinusitis, Tonsillitis, URI Provider Diagnosis: URI (upper respiratory infection) Discharge ED - Sign-Out/Discharge Documenting (check all that apply): Patient Departure All imaging exams completed and their final reports reviewed: No Studies - Discharge Plan Condition: Good Disposition: HOME Patient Education Materials: Upper Respiratory Infection (ED) Forms: *Work Release Referrals: No Primary Care Phys,NOPCP [Primary Care Provider] - Additional Instructions: Continue use of nasal saline spray and ibupofen or acetaminophen for sore throat and ear pain. - Billing Disposition and Condition Condition: GOOD Disposition: Home
== END 2018-12-31 08:51 | disposition home or self-care (01) ==
LOC: UCEAST 08:04
DX: J06.9 Acute upper respiratory infection, unspecified (principal); H92.09 Otalgia, unspecified ear; H93.8X2 Other specified disorders of left ear
CPT/HCPCS: 87651; 99211; G0463

== ENCOUNTER 2019-06-09 09:22 | Emergency (ER) | payer SELFPAY ==
[2019-06-09 09:32] VITALS: BP 131/83
--- NOTE | 2019-06-09 09:46 | UC ---
Complaint Female HPI - HPI Summary HPI Summary: 23 yo female presents with UTI symptoms. She tells me that starting yesterday she developed urinary frequency and burning. She has had UTIs in the past and this feels similar. Nothing OTC for symptoms. She denies fever, chills, abdominal pain, n/v/d, vaginal bleeding or discharge. No flank pain. - History Of Current Complaint Chief Complaint: UCGU Stated Complaint: URINARY ISSUE Time Seen by Provider: 06/09/19 09:46 Hx Obtained From: Patient Hx Last Menstrual Period: Onset/Duration: Sudden Onset Timing: Constant Severity Initially: Moderate Severity Currently: Moderate Pain Intensity: 6 Pain Scale Used: 0-10 Numeric - Allergies/Home Medications Allergies/Adverse Reactions: Allergies Allergy/AdvReac Type Severity Reaction Status Date / Time No Known Allergies Allergy Verified 06/09/19 09:32 Home Medications: Home Medications Norethindrone AC-Eth Estradiol [Aurovela 1 mg-20 Mcg Tablet] 1 tab PO DAILY 06/10 [History Confirmed 06/09/19] Nitrofurantoin Monohyd/M-Cryst [Macrobid 100 mg Capsule] 100 mg PO BID #10 cap 06/09/19 [Rx] Phenazopyridine 200 mg (NF) [Pyridium 200 MG tab *] 200 mg PO TID #6 tab [Rx] PMH/Surg Hx/FS Hx/Imm Hx - Additional Past Medical History Additional PMH: None - Surgical History Surgical History: Yes Surgery Procedure, Year, and Place: Jaw Surgery 2013 in [place], t+a - Family History Known Family History: Positive: Hypertension - mother, Diabetes, Other - CA, Non -Contributory Negative: Cardiac Disease - Social History Lives: With Family Alcohol Use: Rare Substance Use Type: None Smoking Status (MU): Never Smoked Tobacco Review of Systems All Other Systems Reviewed And Are Negative: No Constitutional: Positive: Negative Skin: Positive: Negative Respiratory: Positive: Negative Cardiovascular: Positive: Negative Gastrointestinal: Positive: Negative Genitourinary: Positive: Dysuria Neurological/Mental Status: Positive: Negative Psychological: Positive: Negative Physical Exam - Summary Physical Exam Summary: GENERAL: NAD. WDWN. No pain distress. SKIN: No rashes, sores, lesions, or open wounds. NECK: Supple. Nontender. No lymphadenopathy. CHEST: CTAB. No r/r/w. No accessory muscle use. Breathing comfortably and in no distress. CV: RRR. Pulses intact. Cap refill <2seconds ABDOMEN: Soft. NTTP. No distention or guarding. No CVA tenderness. Bowel sounds present NEURO: Alert. PSYCH: Age appropriate behavior. Triage Information Reviewed: Yes Vital Signs: Initial Vital Signs Temp 98.2 F 06/09/19 09:30 Pulse 85 06/09/19 09:30 Resp 18 06/09/19 09:30 BP 131/83 06/09/19 09:30 Pulse Ox 100 06/09/19 09:30 Laboratory Tests 06/09/19 09:55 POC Urine Color Yellow POC Urine Clarity Clear POC Urine pH 6.0 POC Ur Specif [place] 1.025 POC Urine Protein 2+ A POC Ur Glucose (UA) Negative POC Urine Ketones Negative POC Urine Blood 2+ A POC Urine Nitrite Negative POC Urine Bilirubin Negative POC Urine Urobilinogen 0.2 POC U Leukocyte Esteras 1+ A Vital Signs Reviewed: Yes Complaint Female Dx - Course Course Of Treatment: UA with evidence of UTI. Will treat with macrobid and send urine for culture - Differential Dx/Diagnosis Provider Diagnosis: UTI (urinary tract infection) Discharge ED - Sign-Out/Discharge Documenting (check all that apply): Patient Departure All imaging exams completed and their final reports reviewed: No Studies - Discharge Plan Condition: Stable Disposition: HOME Prescriptions: Nitrofurantoin Monohyd/M-Cryst [Macrobid 100 mg Capsule] 100 mg PO BID #10 cap Phenazopyridine 200 mg (NF) [Pyridium 200 MG tab *] 200 mg PO TID #6 tab Patient Education Materials: Urinary Tract Infection in Women (ED) Referrals: No Primary Care Phys,NOPCP [Primary Care Provider] - Additional Instructions: If you develop a fever, shortness of breath, chest pain, new or worsening symptoms - please call your PCP or go to the ED immediately. - Billing Disposition and Condition Condition: STABLE Disposition: Home - Attestation Statements Provider Attestation: This patient was not seen by me. I was available for consult. Chart reviewed. RUBEN
== END 2019-06-09 10:11 | disposition home or self-care (01) ==
LOC: UCEAST 09:22
DX: N39.0 Urinary tract infection, site not specified (principal)
CPT/HCPCS: 81003; 87077; 87086; 87186; 99212; G0463